=== PATIENT | male | born 1995 | race Caucasian/White ===

== ENCOUNTER 2021-01-26 02:35 | Emergency (ER) | payer OTHER ==
[~2021-01-26] VITALS: Ht 182.9 cm; Wt 109.0 kg
[2021-01-26 03:13] LABS: URINE BILIRUBIN NEGATIVE (Negative); URINE BLOOD NEGATIVE (Negative); URINE CLARITY CLEAR; URINE COLOR YELLOW; URINE GLUCOSE-RANDOM NEGATIVE (Negative); URINE KETONES NEGATIVE (Negative); URINE LEUKOCYTES-REFLEX NEGATIVE (Negative); URINE NITRITE-REFLEX NEGATIVE (Negative); URINE PROTEIN NEGATIVE (Negative); URINE SPECIFIC GRAVITY 1.015 (1.005-1.030)
[2021-01-26 03:14] LABS: AMP/METHAMP Negative (Negative); BARBITURATES Negative (Negative); BENZODIAZEPINES Negative (Negative); COCAINE Negative (Negative); METHADONE Negative (Negative); OPIATES Negative (Negative); PCP Negative (Negative); THC Negative (Negative)
[2021-01-26 03:23] LABS: ABSOLUTE BASOPHILS 0.1 thou/uL (0.0-0.2); ABSOLUTE EOSINOPHILS 0.2 thou/uL (0.0-0.7); ABSOLUTE LYMPHOCYTES 2.3 thou/uL (0.8-5.3); ABSOLUTE MONOCYTES 0.7 thou/uL (0.0-1.2); ABSOLUTE NEUTROPHILS 6.1 thou/uL (1.6-8.1); BASOPHILS 0.7 %; EOSINOPHILS 1.9 %; HEMATOCRIT 43.9 % (42.0-52.0); LYMPHOCYTES 24.1 %; MCH 28.5 pg (26.0-34.0); MCHC 34.2 g/dL (28.0-37.0); MCV 83.2 fL (80.0-100.0); MONOCYTES 7.9 %; MPV 9.5 fl. (7.2-11.1); NUCLEATED RBCS 0 /100WBC; PLATELET COUNT* 165 thou/uL (150-400); POLYS 65.4 %; RBC 5.28 mil/uL (4.50-6.00); RDW-CV 13.1 % (10.5-14.5); WBC 9.4 thou/uL (4.0-11.0)
[2021-01-26 03:27] LABS: CALCIUM 8.2 mg/dL (8.5-10.1); CREATININE 0.9 mg/dL (0.6-1.3); POTASSIUM 3.4 mmol/L (3.5-5.1)
[2021-01-26 03:32] LABS: ALBUMIN 4.1 g/dL (3.4-5.0); TOTAL BILIRUBIN 0.4 mg/dL (<0.1-1.0); TOTAL PROTEIN 7.2 g/dL (6.4-8.2)
[2021-01-26] MEDS ORDERED: ZOFRAN ODT4 MG PO ×2 (03:54→04:08)
[2021-01-26] MEDS ORDERED: VERTICALM25 MG PO ×2 (03:54→04:08)
[2021-01-26 04:10] VITALS: BP 139/88
--- NOTE | 2021-01-26 14:10 | EKG ---
[place] [address] ELECTROCARDIOGRAM REPORT Name: ALEMANSTERLING Milly Room: [facility]#: [id number] Admission: 01/26/21 Attend Phys: Discharge: 01/26/21 Date of : 89 Date of Service: 01/26/214 Report #: [id number] THIS REPORT FOR: //name// 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 : 1995 Requested By: Oma López Order Number: [id number] MD: Erickson Hatfield Measurements Intervals [place] Rate: 70 P: 29 IN: 146 QRS: 228 QRSD: 101 T: 24 QT: 391 QTc: 422 Interpretive Statements Sinus rhythm Indeterminate QRS axis Minor IVCD No previous ECG available for comparison Electronically Signed On 01-26-2021 14:10:28 CDT by Erickson Hatfield [email or web address] <ELECTRONICALLY SIGNED> By: Erickson Hatfield MD, [facility] 01/26/21 1410 0244 [id number] Erickson Hatfield MD, FAC /EPI
== END 2021-01-26 04:10 | disposition home or self-care (01) ==
LOC: M.ERS 02:35
PROVIDERS: Emergency Medicine
DX: T67.1XXA Heat syncope, initial encounter (principal); Z90.89 Acquired absence of other organs; Z88.2 Allergy status to sulfonamides; X58.XXXA Exposure to other specified factors, initial encounter; Y93.89 Activity, other specified; Y92.89 Other specified places as the place of occurrence of the external cause; Y99.8 Other external cause status